=== PATIENT | male | born 1975 | race Two or more races ===

== ENCOUNTER 2018-10-23 08:18 | Emergency (ER) | payer BC ==
[~2018-10-23] VITALS: Ht 172.7 cm; Wt 95.3 kg
[2018-10-23 08:27] VITALS: BP 155/94
[2018-10-23] MEDS ORDERED: LORazepam 0.5 MG TAB PO ONE (08:45)
[2018-10-23] MEDS ORDERED: ASPirin 81 mg TAB PO ONE (08:45)
== END 2018-10-23 09:16 | disposition left against medical advice (07) ==
LOC: ER 08:18
DX: R00.2 Palpitations (principal); I10 Essential (primary) hypertension; F17.210 Nicotine dependence, cigarettes, uncomplicated; Z53.29 Procedure and treatment not carried out because of patient's decision for other reasons
CPT/HCPCS: 71046; 93005; 94761